=== PATIENT | male | born 1940 | race African-American/Black ===

== ENCOUNTER 2020-12-15 17:48 | Emergency (ER) | payer OTHER ==
[~2020-12-15] VITALS: Ht 182.9 cm; Wt 63.5 kg
[2020-12-15 18:09] LABS: CALCIUM 8.3 mg/dL (8.5-10.1); CREATININE 2.2 mg/dL (0.7-1.3); HEMOGLOBIN 7.4 gm/dL (14.0-18.0); PLATELET COUNT 158 thou/uL (150-400); POTASSIUM 4.2 mmol/L (3.5-5.1)
[2020-12-15] MEDS ORDERED: IRON325 M1 PO (18:10)
[2020-12-15] MEDS ORDERED: COZAAR 25 MG TA25 M2 PO (18:10)
[2020-12-15] MEDS ORDERED: LIPITOR40 MG PO (18:10)
[2020-12-15] MEDS ORDERED: TYLENOL325 MG PO (18:10)
[2020-12-15] MEDS ORDERED: ALLOPURINOL 10100 M2 PO (18:10)
[2020-12-15 18:11] LABS: ABSOLUTE NEUTROPHILS 5.2 thou/uL (1.4-8.2); BASOPHILS 0.1 % (0.0-2.0); HEMATOCRIT 22.9 % (42.0-52.0); LYMPHOCYTES 5.7 % (24.0-44.0); MCH 31.1 pg (26.0-34.0); MCHC 32.2 g/dL (28.0-37.0); MCV 96.8 fL (80.0-100.0); MONOCYTES 7.7 % (1.0-8.0); POLYS 86.5 % (36.0-66.0); RBC 2.37 mil/uL (4.50-6.00); RDW 21.8 % (10.5-14.5)
[2020-12-15] MEDS ORDERED: FUROSEMIDE 40 M40 MG PO (18:11)
[2020-12-15] MEDS ORDERED: LASIX 20 MG TAB20 MG PO (18:11)
[2020-12-15] MEDS ORDERED: PREDNISONE 20 M20 MG PO (18:12)
[2020-12-15 18:19] LABS: ALBUMIN 2.7 g/dL (3.4-5.0); TOTAL BILIRUBIN 1.2 mg/dL (0.2-1.0); TOTAL PROTEIN 7.2 g/dL (6.4-8.2)
[2020-12-15 19:18] LABS: URINE BILIRUBIN NEGATIVE (Negative); URINE BLOOD NEGATIVE (Negative); URINE CLARITY CLEAR; URINE COLOR YELLOW; URINE GLUCOSE-RANDOM* NEGATIVE (Negative); URINE KETONES NEGATIVE (Negative); URINE LEUKOCYTES-REFLEX NEGATIVE (Negative); URINE NITRITE-REFLEX NEGATIVE (Negative); URINE PROTEIN (DIPSTICK) NEGATIVE (Negative); URINE SPECIFIC GRAVITY 1.015 (1.005-1.035); URINE UROBILINOGEN 0.2 E.U./dl (0.2-1.0)
[2020-12-16 00:23] VITALS: BP 138/68
--- NOTE | 2020-12-16 09:48 | EKG ---
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: [place] BOBBY : 1940 Requested By: Peter Ramon Order Number: [id number] MD: Romel Salmeron Measurements Intervals [place] Rate: 68 P: 0 WA: 180 QRS: 119 QRSD: 178 T: -32 QT: 484 QTc: 515 Interpretive Statements Ventricular-paced complexes No further analysis attempted due to paced rhythm No previous ECG available for comparison Electronically Signed On 12-16-2020 9:48:05 CDT by Romel Salmeron [email or web address] <ELECTRONICALLY SIGNED> By: Romel Salmeron MD, [facility] 12/16/20 0948 1753 1753 Romel Salmeron MD, FACC /EPI
== END 2020-12-16 00:23 ==
LOC: ER 17:48
PROVIDERS: Student in an Organized Health Care Education/Training Program
DX: R06.02 Shortness of breath (principal); Z20.822 Contact with and (suspected) exposure to COVID-19; R60.0 Localized edema; I50.9 Heart failure, unspecified; I48.91 Unspecified atrial fibrillation; N18.9 Chronic kidney disease, unspecified; Z87.891 Personal history of nicotine dependence; Z79.899 Other long term (current) drug therapy